=== PATIENT | male | born 1980 | race Caucasian/White ===

== ENCOUNTER 2021-05-12 20:26 | Emergency (ER) | payer OTHER ==
[~2021-05-12 20:26] MED LIST: CYCLOBENZAPRINE10 MG PO
== END 2021-05-13 | disposition left against medical advice (07) ==
LOC: ER1 20:26
DX: S00.412A Abrasion of left ear, initial encounter (principal); S80.812A Abrasion, left lower leg, initial encounter; I11.9 Hypertensive heart disease without heart failure; Z95.5 Presence of coronary angioplasty implant and graft; W22.11XA Striking against or struck by driver side automobile airbag, initial encounter; V43.52XA Car driver injured in collision with other type car in traffic accident, initial encounter; Y92.410 Unspecified street and highway as the place of occurrence of the external cause
CPT/HCPCS: 70450; 71045; 72170; 73562; 73590; 73610; 99284

== ENCOUNTER 2021-08-09 09:53 | Emergency (ER) | payer OTHER ==
[2021-08-09 10:45] LABS: HEMOGLOBIN 15.8 gm/dl (14.0-17.5); RED BLOOD COUNT 5.39 M/UL (4.20-5.50); WHITE BLOOD COUNT 12.9 K/UL (4.5-11.0)
[2021-08-09 11:17] LABS: BUN/CREATININE RATIO 13 (0-10)
== END 2021-08-09 14:40 | disposition home or self-care (01) ==
LOC: ER1 09:53
PROVIDERS: Physician Assistant
DX: R00.2 Palpitations (principal); F41.9 Anxiety disorder, unspecified; E78.5 Hyperlipidemia, unspecified; F17.200 Nicotine dependence, unspecified, uncomplicated; R06.02 Shortness of breath
CPT/HCPCS: 71045; 80053; 82550; 82553; 84439; 84443; 84484; 85025; 93005; 93242; 99285

== ENCOUNTER 2021-10-05 11:38 | Emergency (ER) | payer OTHER ==
[2021-10-05 13:38] LABS: HEMOGLOBIN 16.7 gm/dl (14.0-17.5); RED BLOOD COUNT 5.39 M/UL (4.20-5.50); WHITE BLOOD COUNT 11.2 K/UL (4.5-11.0)
[2021-10-05 14:11] LABS: BUN/CREATININE RATIO 14 (0-10)
== END 2021-10-05 23:58 | disposition short-term general hospital (02) ==
LOC: ER1 11:38
PROVIDERS: Family Medicine
DX: S70.362A Insect bite (nonvenomous), left thigh, initial encounter (principal); R45.851 Suicidal ideations; R07.9 Chest pain, unspecified; Z20.822 Contact with and (suspected) exposure to COVID-19; Z79.82 Long term (current) use of aspirin; F17.200 Nicotine dependence, unspecified, uncomplicated; Z95.5 Presence of coronary angioplasty implant and graft; W57.XXXA Bitten or stung by nonvenomous insect and other nonvenomous arthropods, initial encounter
CPT/HCPCS: 71045; 80048; 82550; 82553; 84484; 85025; 93005; 99285; U0002